=== PATIENT | male | born 1945 | race Caucasian/White ===

== ENCOUNTER 2016-05-26 13:23 | Emergency (ER) | payer OTHER ==
[2016-05-26 13:38] VITALS: BP 156/81; PULSE 70; RESP 16; TEMP 96.8; O2SAT 94
[2016-05-26] MEDS ORDERED: PHENYLEPHRINE 0.25% NASAL 15 ML SPRAY ONE (13:38)
--- NOTE | 2016-05-26 14:35 | UCPHY ---
H & P Time Seen by Provider: 05/26/16 13:38 Patient Type: Established HPI/ROS: 70-year-old male currently on Coumadin due to an apical thrombus. This is long- term therapy for which he has a target range of 2-3. Yesterday had a nosebleed left naris for about 10 minutes. Stop by and stain asleep. Recurred again today. Has been persistent often moderately for the last hour or 2. He cannot recall any trauma to the area. He has had a remote history of nose bleed in the past. 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 The anterior epistaxis was identified, left Kesselbach's, 1 cm posterior The patient was treated with [Nura-Synephrine spray both nostrils ]. We cleared the clots via blowing of his nose Silver nitrate cautery stop the bleeding. 2 inch gauze was placed in an anterior nares with Nura-Synephrine. Recheck 20 minutes later, still oozing blood. Anterior packing removed E Blue nose but there is nothing. The area appeared dry. Nonetheless a 2 cm Merocel pack was placed with Nura-Synephrine. Tolerated well. No recurrence of bleeding Following the procedure the patient was re-examined and the bleeding was well controlled. The patient tolerated the procedure well. The procedure was performed by myself. Constitutional: Initial Vital Signs Temperature (C) 36 C 05/26/16 13:28 Heart Rate 70 05/26/16 13:28 Respiratory Rate 16 05/26/16 13:28 Blood Pressure 156/81 H 05/26/16 13:28 O2 Sat (%) 94 05/26/16 13:28 O2 Delivery Mode Room Air Allergies/Adverse Reactions: lisinopril Allergy (Verified 05/26/16 13:35) vancomycin Allergy (Verified 05/26/16 13:35) Medical Decision Making ED Course/Re-evaluation: As noted below there is the eventual full hemostasis. Tolerated well. No recurrence. Lab stable for him. The degree of his bleeding does not warrant reversal of his Coumadin at this time Differential Diagnosis: Diagnostic considerations include, but are not limited to, the following: Epistaxis, nasal tumor, hypertension, bleeding diathesis - Data Points Laboratory Results: Laboratory Results 05/26/16 14:46 05/26/16 14:46 WBC 7.84 10^3/uL (3.80-9.50) RBC 5.43 10^6/uL (4.40-6.38) Hgb 15.0 g/dL (13.7-17.5) Hct 43.9 % (40.0-51.0) MCV 80.8 L fL (81.5-99.8) MCH 27.6 L pg (27.9-34.1) MCHC 34.2 g/dL (32.4-36.7) RDW 15.1 % (11.5-15.2) Plt Count 254 10^3/uL (150-400) MPV 11.2 fL (8.7-11.7) Neut % (Auto) 47.4 % (39.3-74.2) Lymph % (Auto) 36.4 % (15.0-45.0) Bent % (Auto) 11.5 % (4.5-13.0) Eos % (Auto) 3.8 % (0.6-7.6) Baso % (Auto) 0.6 % (0.3-1.7) Nucleat RBC Rel Count 0.0 % (0.0-0.2) Absolute Neuts (auto) 3.72 10^3/uL (1.70-6.50) Absolute Lymphs (auto) 2.85 10^3/uL (1.00-3.00) Absolute Monos (auto) 0.90 H 10^3/uL (0.30-0.80) Absolute Eos (auto) 0.30 10^3/uL (0.03-0.40) Absolute Basos (auto) 0.05 10^3/uL (0.02-0.10) Absolute Nucleated RBC 0.00 10^3/uL (0-0.01) Immature Gran % 0.3 % (0.0-1.1) Immature Gran # 0.02 10^3/uL (0.00-0.10) PT 31.6 H SEC (12.0-15.0) INR 3.14 H (0.83-1.16) Departure - Departure Disposition: Home, Routine, Self-Care Clinical Impression: Arterial epistaxis Instructions: Nosebleed (ED) Additional Instructions: call us in 2 hours for results: [phone] until seen by ENT next week - 5 days Continue your Coumadin. Referrals: Brandon Ceja MD [Primary Care Provider] - As per Instructions - PQRS PQRS Measurement: 134: Depression screening and followup, PRIME MD-PHQ2 (12 years and older) Over the last 2 weeks, how often have you been bothered by any of the following problems? 1. Feeling down, depressed, or hopeless? 2. Little interest or pleasure in doing things? Patient answers yes to both 1 and tube is under the care of a counselor at the [facility] 130: Documentation of medications. Reviewed all patient medications, doses, route and frequency. 226: Do you smoke? No. 47: 65 and older: Advanced care planning. Patient designates surrogate decision maker as spouse . Patient has advanced directive. 51: 18 years old and older with diagnosis of COPD, spirometry performance. Spirometry not performed; equipment not available. Patient has no history of COPD 52: 18 years old and older with COPD and symptoms of COPD or FEV1<60% predicted prescribed a B Agonist. Spirometry not performed; equipment not available. Patient has no history of COPD
[2016-05-26 14:53] LABS: % IMMATURE GRANULYOCYTES 0.3 % (0.0-1.1); ABSOLUTE IMMATURE GRANULOCYTES 0.02 10^3/uL (0.00-0.10); ADD DIFF? NO; ADD MORPH? NO; ADD SCAN? NO; ATYPICAL LYMPHOCYTE FLAG 10 (0-99); FRAGMENT RBC FLAG 0 (0-99); HEMATOCRIT 43.9 % (40.0-51.0); LEFT SHIFT FLG 0 (0-99); LIPEMIA HEMOLYSIS FLAG 90 (0-99); MEAN CELL HEMOGLOBIN 27.6 pg (27.9-34.1); MEAN CELL HEMOGLOBIN CONCENTR. 34.2 g/dL (32.4-36.7); MEAN CELL VOLUME 80.8 fL (81.5-99.8); MEAN PLATELET VOLUME 11.2 fL (8.7-11.7); PLATELET CLUMPS FLAG 0 (0-99); PLATELET COUNT 254 10^3/uL (150-400); RED BLOOD CELL COUNT 5.43 10^6/uL (4.40-6.38); RED CELL DISTRIBUTION WIDTH 15.1 % (11.5-15.2)
[2016-05-26 15:07] LABS: INR 3.14 (0.83-1.16); PROTIME(PATIENT) 31.6 SEC (12.0-15.0)
== END 2016-05-26 15:35 | disposition home or self-care (01) ==
LOC: CED 13:23
PROC: 2Y41X5Z Packing of Nasal Region using Packing Material (ICD-10-PCS; principal; 2016-05-26)
PROC: 095KXZZ Destruction of Nasal Mucosa and Soft Tissue, External Approach (ICD-10-PCS; 2016-05-26)
DX: R04.0 Epistaxis (principal); Z79.01 Long term (current) use of anticoagulants; I51.3 Intracardiac thrombosis, not elsewhere classified; I25.10 Atherosclerotic heart disease of native coronary artery without angina pectoris; I10 Essential (primary) hypertension; E78.5 Hyperlipidemia, unspecified; Z95.0 Presence of cardiac pacemaker
CPT/HCPCS: 30901; G0463; 30903-PO; 85025-PO; 85610-PO; 99214-PO

== ENCOUNTER 2018-10-14 10:55 | Emergency (ER) | payer OTHER | END 2018-10-14 13:28 | disposition home or self-care (01) | LOC: CED 10:55 ==